=== PATIENT | female | born 1975 | race Caucasian/White ===

== ENCOUNTER 2018-08-18 20:26 | Emergency (ER) | payer MEDICAID, OTHER ==
[2018-08-18 20:35] VITALS: BMI 27.3
[2018-08-18 20:36] VITALS: RESP 18; O2SAT 100
[2018-08-18] MEDS ORDERED: Albuterol-Ipratrop 3 mg / 0.5 (3 ml) UD IH STA (20:56)
[2018-08-18] MEDS ORDERED: Sodium Chloride 0.9% 1,000 ML IV STA (20:56)
--- NOTE | 2018-08-18 21:03 | ED PDOC ---
HPI: SOB/CHF/COPD Time Seen by Provider: 08/18/18 20:45 Chief Complaint (Nursing): Shortness Of Breath Chief Complaint (Provider): Shortness Of Breath History Per: Patient History/Exam Limitations: no limitations Onset/Duration Of Symptoms: Days (x2), Worse Since (today) Current Symptoms Are (Timing): Still Present Additional Complaint(s): 42 year old female with history of seasonal allergies, presents to the emergency department with a complaint of shortness of breath since yesterday. She reports associated upper back pain, chest tightness, congestion, chills, and left-sided sinus pressure. Patient denies abdominal pain, numbness, weakness, headache, cough, leg pain or swelling, nausea, vomiting, diarrhea, long distance traveling, or similar symptoms in the past. No hormone use. PCP: Dr. Carlos Weaver Past Medical History Reviewed: Historical Data, Nursing Documentation, Vital Signs Vital Signs: Last Vital Signs Temp 97.8 F 08/18/18 20:35 Pulse 67 08/18/18 20:35 Resp 18 08/18/18 20:35 BP 119/80 08/18/18 20:35 Pulse Ox 100 08/18/18 20:35 - Medical History PMH: No Chronic Diseases - Surgical History Surgical History: (x2) Other surgeries: hip x2; hysterectomy 2010 - Family History Family History: States: Unknown Family Hx - Home Medications Home Medications: Ambulatory Orders Medication Instructions Recorded Azithromycin [Zithromax Z-Sander] 250 mg PO DAILY #1 packet 11/17/14 Guaifenesin/Pseudoephedrne HCl 1 ter PO Q12H PRN #10 ter 11/17/14 [Mucinex D 600 mg-60 mg] Prednisone 20 mg PO BID #10 tablet 07/27/15 Albuterol Sulfate [Proair Hfa] 0.09 mg IH Q6H PRN #2 inh 08/18/18 Amoxicillin/Clavulanate [Augmentin 1 tab PO BID 7 Days tab 08/18/18 875 MG-125 MG] Ibuprofen [Motrin] 600 mg PO TID 7 Days tab 08/18/18 traMADol [Ultram] 50 mg PO BID 2 Days tab 08/18/18 - Allergies Allergies/Adverse Reactions: Allergies Allergy/AdvReac Type Severity Reaction Status Date / Time Sulfa (Sulfonamide Allergy SHORTNESS Verified 08/18/18 20:31 Antibiotics) OF BREATH Review of Systems ROS Statement: Except As Marked, All Systems Reviewed And Found Negative Constitutional: Positive for: Chills ENT: Positive for: Nose Congestion, Other (left-sided sinus pressure) Cardiovascular: Positive for: Chest Pain (tightness) Respiratory: Positive for: Shortness of Breath Gastrointestinal: Negative for: Nausea, Vomiting, Diarrhea Musculoskeletal: Positive for: Back Pain (upper). Negative for: Leg Pain Physical Exam - Reviewed Nursing Documentation Reviewed: Yes Vital Signs Reviewed: Yes - Physical Exam Appears: Positive for: Non-toxic, No Acute Distress Head Exam: Positive for: ATRAUMATIC, NORMAL INSPECTION, NORMOCEPHALIC Skin: Positive for: Normal Color Eye Exam: Positive for: EOMI, Normal appearance, PERRL ENT: Positive for: Nasal Congestion. Negative for: Pharyngeal Erythema, Other (b/l maxillary sinus tenderness) Neck: Positive for: Normal, Painless ROM, Supple Cardiovascular/Chest: Positive for: Regular Rate, Rhythm, Other (upper chest sternum wall tenderness). Negative for: Chest Non Tender Respiratory: Positive for: Normal Breath Sounds. Negative for: Decreased Breath Sounds, Wheezing, Respiratory Distress Gastrointestinal/Abdominal: Positive for: Normal Exam, Soft. Negative for: Tenderness Back: Positive for: Normal Inspection. Negative for: L CVA Tenderness, R CVA Tenderness, Vertebral Tenderness, Decreased ROM Extremity: Positive for: Normal ROM (upper/lower). Negative for: Tenderness, Pedal Edema, Calf Tenderness Neurological/Psych: Positive for: Awake, Alert, Oriented - Laboratory Results Result Diagrams: 08/18/18 22:08 08/18/18 22:08 Lab Results: no acute - ECG ECG: Positive for: Interpreted By Me, Viewed By Me ECG Rhythm: Positive for: Normal QRS, Normal ST Segment, Sinus Rhythm O2 Sat by Pulse Oximetry: 100 (RA) Pulse Ox Interpretation: Normal - Radiology X-Ray: Interpreted by Me, Viewed By Me X-Ray Interpretation: No Acute Disease - Progress ED Course And Treament: 2340: Stable. AAOx3. Will tx for sinusitis and give motrin and ultram for pain control. Pt. states pain is more when moving around and tender to touch: located in the lateral wall right and left and back. No numbness, tingles, weakness. Will give rx for inhaler as she was feeling better. Medical Decision Making Medical Decision Making: Time: 2052 Initial Plan: * EKG * Labs * Duoneb INH * IV fluids * Toradol IVP Scribe Attestation: Documented by Sadie Jaime, acting as a scribe for Ritchie Branham MD. Provider Scribe Attestation: All medical record entries made by the Scribe were at my direction and personally dictated by me. I have reviewed the chart and agree that the record accurately reflects my personal performance of the history, physical exam, m edical decision making, and the department course for this patient. I have also personally directed, reviewed, and agree with the discharge instructions and disposition. Disposition - Clinical Impression Clinical Impression: Sinusitis, Chest pain - Patient ED Disposition Is Patient to be Admitted: No Counseled Patient/Family Regarding: Studies Performed, Diagnosis, Need For Followup, Rx Given - Disposition Referrals: [facility] [Outside] - 08/21/18 11:42 pm Disposition: Routine/Home Disposition Time: 22:00 Condition: STABLE Additional Instructions: Return if not better in 3 days. Prescriptions: Albuterol Sulfate [Proair Hfa] 0.09 mg IH Q6H PRN #2 inh PRN Reason: Wheezing Amoxicillin/Clavulanate [Augmentin 875 MG-125 MG] 1 tab PO BID 7 Days tab Ibuprofen [Motrin] 600 mg PO TID 7 Days tab traMADol [Ultram] 50 mg PO BID 2 Days tab Instructions: Sinusitis in Adults, Chest Pain (DC), Taking Narcotics Safely Forms: [employer] (Congolese), [facility] School/Work Excuse
[2018-08-18 22:20] LABS: BASO % 0.3 % (0.0-2.0); EOS # 0.1 K/uL (0.0-0.7); EOS % 1.4 % (0.0-4.0); HEMOGLOBIN 12.3 g/dL (12.0-16.0); LYMPH # 1.8 K/uL (1.0-4.3); LYMPH % 38.6 % (20.0-40.0); MEAN CELL VOLUME 88.1 fl (81.0-99.0); MEAN CORPUSCULAR HEMOGLOBIN 29.5 pg (27.0-31.0); MEAN CORPUSCULAR HGB CONC 33.5 g/dL (33.0-37.0); MEAN PLATELET VOLUME 8.6 fl (7.2-11.7); MONO # 0.4 K/uL (0.0-0.8); MONO % 8.5 % (0.0-10.0); NEUT # 2.4 K/uL (1.8-7.0); NEUT % 51.2 % (50.0-75.0); NRBC % 0.2 % (0.0-0.0); RBC 4.16 Mil/uL (3.80-5.20); RED CELL DISTRIBUTION WIDTH 13.3 % (11.5-14.5); WHITE BLOOD COUNT 4.7 K/uL (4.8-10.8)
[2018-08-18 22:25] LABS: PARTIAL THROMBOPLASTIN TIME 30.4 Seconds (25.6-37.1)
[2018-08-18] MEDS ORDERED: Albuterol-Ipratrop 3 mg / 0.5 (3 ml) UD ONE (22:28)
[2018-08-18 22:30] LABS: D DIMER < 200 ng/mlDDU (0-230)
[2018-08-18 22:36] LABS: ALB/GLOB RATIO 1.4 (1.0-2.1); ALBUMIN 4.4 g/dL (3.5-5.0); ALT/SGPT 37 U/L (9-52); AST/SGOT 35 U/L (14-36); BLOOD UREA NITROGEN 10 mg/dl (7-17); CALCIUM 9.7 mg/dL (8.4-10.2); GFR NON-AFRICAN AMERICAN > 60
[2018-08-18 22:43] LABS: B-TYPE NATRIURETIC PEPTIDE 36.2 pg/ml (0-450)
[2018-08-19 00:45] VITALS: BP 126/82; PULSE 72; TEMP 98.2
--- NOTE | 2018-08-19 09:36 | RAD ---
Date of service: 08/18/2018 HISTORY: dyspnea COMPARISON: Chest radiographs 02/01/2016. TECHNIQUE: 1 view obtained. FINDINGS: LUNGS: No active pulmonary disease. PLEURA: No significant pleural effusion identified, no pneumothorax apparent. CARDIOVASCULAR: No aortic atherosclerotic calcification present. Cardiac size remains normal. Main pulmonary artery segment appears prominent and may indicate pulmonic valvular stenosis or pulmonary artery hypertension. Clinically correlate further. No pulmonary vascular congestion. OSSEOUS STRUCTURES: No significant abnormalities. VISUALIZED UPPER ABDOMEN: Normal. OTHER FINDINGS: None. IMPRESSION: No acute cardiopulmonary disease. Interval main pulmonary artery prominence may indicate. See final report dated 08/18/2018.. Clinically correlate further. PA review added.
--- NOTE | 2018-08-19 15:09 | CARD ---
APPROVED REPORT Date of service: 08/18/2018 EKG Measurement Heart [id number] <Conclusion> Normal sinus rhythm Normal ECG
== END 2018-08-19 00:05 | disposition home or self-care (01) ==
LOC: H.ER 20:26
DX: R06.02 Shortness of breath (principal)
CPT/HCPCS: 71045; 80053; 83880; 84484; 85025; 85378; 85610; 85730; 93005; 94640; 96374; 99284; J1885; J7030